=== PATIENT | female | born 1990 | race Two or more races ===

== ENCOUNTER 2016-11-03 11:04 | Emergency (ER) | payer SELFPAY ==
--- NOTE | 2016-11-03 11:05 | NUR ---
CALLED FOR TRIAGE, NO ANSWER, PER STAFF PT STEPPED OUT FOR FAST FOOD.
--- NOTE | 2016-11-03 11:20 | NUR ---
CALLED FOR TRIAGE, NO ANSWER, PT STILL NOT IN WAITING ROOM.
== END 2016-11-03 11:35 | disposition left against medical advice (07) ==
LOC: ER 11:13
DX: Z53.21 Procedure and treatment not carried out due to patient leaving prior to being seen by health care provider (principal)

== ENCOUNTER 2016-11-03 13:17 | Emergency (ER) | payer SELFPAY ==
[~2016-11-03] VITALS: Ht 149.9 cm; Wt 49.9 kg
[2016-11-03 13:24] VITALS: BP 113/85
[2016-11-03] MEDS ORDERED: LORAZEPAM 1 MG TABLET ONE (13:51)
[2016-11-03] MEDS ORDERED: LORAZEPAM 1 MG TABLET PO ONE (14:00)
== END 2016-11-03 14:06 | disposition home or self-care (01) ==
LOC: ER 13:18
DX: F41.9 Anxiety disorder, unspecified (principal); M54.5 Low back pain; F11.10 Opioid abuse, uncomplicated; J40 Bronchitis, not specified as acute or chronic; F17.200 Nicotine dependence, unspecified, uncomplicated
CPT/HCPCS: 99284; A4606; Z7610

== ENCOUNTER 2017-03-14 09:05 | Emergency (ER) | payer OTHER ==
[~2017-03-14] VITALS: Ht 149.9 cm; Wt 51.3 kg
[2017-03-14 09:14] VITALS: BP 124/74
== END 2017-03-14 09:40 | disposition home or self-care (01) ==
LOC: ER 09:16
DX: F41.9 Anxiety disorder, unspecified (principal); G89.29 Other chronic pain; F17.200 Nicotine dependence, unspecified, uncomplicated; F10.10 Alcohol abuse, uncomplicated
CPT/HCPCS: 99284; 99406; A4606; Z7610

== ENCOUNTER 2023-01-01 13:08 | Emergency (ER) | payer OTHER ==
[~2023-01-01] VITALS: Ht 149.9 cm; Wt 71.7 kg
[2023-01-01 13:18] VITALS: BP 144/90; TEMP 97.8; O2SAT 98
[2023-01-01] MEDS ORDERED: AMOX-430 PO (13:41)
[2023-01-01] MEDS ORDERED: AMOX/CLAVULANATE 875 MG TABLET ONE (13:59)
[2023-01-01] MEDS ORDERED: AMOX/CLAVULANATE 875 MG TABLET PO ONE (14:00)
== END 2023-01-01 14:25 | disposition home or self-care (01) ==
LOC: ER 13:16
DX: S51.831A Puncture wound without foreign body of right forearm, initial encounter (principal); F41.9 Anxiety disorder, unspecified; F17.200 Nicotine dependence, unspecified, uncomplicated; Z60.2 Problems related to living alone; W54.0XXA Bitten by dog, initial encounter; Y93.89 Activity, other specified; Y92.89 Other specified places as the place of occurrence of the external cause; Y99.8 Other external cause status